=== PATIENT | male | born 1980 | race Caucasian/White ===

== ENCOUNTER 2019-07-14 18:59 | Emergency (ER) | payer SELFPAY ==
[~2019-07-14] VITALS: Ht 177.8 cm; Wt 83.9 kg
--- NOTE | 2019-07-14 19:24 | NUR ---
eye acuity 20/20 in both eyes with contacts.
== END 2019-07-14 19:30 | disposition home or self-care (01) ==
LOC: FSED 18:59
DX: H10.31 Unspecified acute conjunctivitis, right eye (principal)
CPT/HCPCS: 99282